=== PATIENT | male | born 1955 | race Caucasian/White ===

== ENCOUNTER 2020-03-19 11:30 | Emergency (ER) | payer BC, OTHER ==
[~2020-03-19] VITALS: Ht 172.7 cm; Wt 95.4 kg
[~2020-03-19 11:30] MED LIST: ALPR.5T; OXYC-12 PO
[2020-03-19 11:53] LABS: BASOPHILS % (AUTO) 0 % (0-10); EOSINOPHILS # (AUTO) 0.1 10^3/uL (0.0-0.3); EOSINOPHILS % (AUTO) 1 % (0-10); HEMATOCRIT 43 % (40-54); HEMOGLOBIN 14.9 G/DL (13.3-17.7); LYMPHOCYTES # (AUTO) 1.5 X 10^3 (1.0-4.0); LYMPHOCYTES % (AUTO) 18 % (12-44); MEAN CORPUSCULAR HEMOGLOBIN 30 PG (25-34); MEAN CORPUSCULAR HGB CONC 35 G/DL (32-36); MEAN CORPUSCULAR VOLUME 88 FL (80-99); MEAN PLATELET VOLUME 9.5 FL (7.4-10.4); MONOCYTES # (AUTO) 0.4 X 10^3 (0.0-1.0); MONOCYTES % (AUTO) 5 % (0-12); NEUTROPHILS # (AUTO) 6.3 X 10^3 (1.8-7.8); NEUTROPHILS % (AUTO) 76 % (42-75); PLATELET COUNT 204 10^3/uL (130-400); WHITE BLOOD COUNT 8.3 10^3/uL (4.3-11.0)
--- NOTE | 2020-03-19 11:58 | ED GI ---
General Chief Complaint: - Urinary Stated Complaint: LRQ PAIN Source of Information: Patient Exam Limitations: No Limitations History of Present Illness Date Seen by Provider: Mar 19, 2020 Time Seen by Provider: 11:40 Initial Comments The patient is a pleasant 64-year-old male who presents for evaluation of right lower quadrant abdominal pain which started this morning around 7 AM. He states that he has had a kidney stone the past that this feels the same. He reports a past surgical history including appendectomy, cholecystectomy, and kidney stone retrieval. He is alert and oriented 4, calm, and appears to be in no distress. He denies fevers or chills, rectal bleeding, diarrhea, nausea or vomiting, chest pain or shortness of breath, or testicular pain, hematuria, dysuria, dizziness or syncope. Timing/Duration: 4-6 Hours Severity/Quality: Moderate Location: RLQ Radiation: No Radiation Activities at Onset: None Associated Symptoms: Denies Symptoms Allergies and Home Medications Allergies Coded Allergies: No Known Allergies (Verified Allergy, Unknown, 04/11/06) Home Medications Oxycodone Hcl/Acetaminophen 1 Each Tablet, 2 EACH PO Q6H, (Reported) Patient Home Medication List Home Medication List Reviewed: Yes Review of Systems Review of Systems Constitutional: no symptoms reported EENTM: No Symptoms Reported Respiratory: No Symptoms Reported Cardiovascular: No Symptoms Reported Gastrointestinal: Abdominal Pain Genitourinary: No Symptoms Reported Musculoskeletal: no symptoms reported Skin: no symptoms reported Psychiatric/Neurological: No Symptoms Reported Endocrine: No Symptoms Reported Hematologic/Lymphatic: No Symptoms Reported All Other Systems Reviewed Negative Unless Noted: Yes Past Ttjxsce-Husgik-Yaypir Hx Past Med/Social Hx: Reviewed Nursing Past Med/Soc Hx Patient Social History Recent Foreign Travel: No Contact w/Someone Who Travel: No Past Medical History Reproductive Disorders: No Physical Exam Vital Signs Vital Signs - First Documented 03/19/20 11:37 Temp 36.0 Pulse 50 Resp 18 B/P (MAP) 157/88 (111) Pulse Ox 100 O2 Delivery Room Air Capillary Refill : Height/Weight/BMI Height: '" Weight: lbs. oz. 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, no motor/sensory deficits, alert, normal mood/affect, oriented x 3 Skin: normal color, warm/dry Progress/Results/Core Measures Results/Orders Lab Results Laboratory Tests Test 03/19/20 11:45 03/19/20 12:00 Range/Units White Blood Count 8.3 4.3-11.0 10^3/uL Red Blood Count 4.89 4.35-5.85 10^6/uL Hemoglobin 14.9 13.3-17.7 G/DL Hematocrit 43 40-54 % Mean Corpuscular Volume 88 80-99 FL Mean Corpuscular Hemoglobin 30 25-34 PG Mean Corpuscular Hemoglobin Concent 35 32-36 G/DL Red Cell Distribution Width 12.9 10.0-14.5 % Platelet Count 204 130-400 10^3/uL Mean Platelet Volume 9.5 7.4-10.4 FL Neutrophils (%) (Auto) 76 H 42-75 % Lymphocytes (%) (Auto) 18 12-44 % Monocytes (%) (Auto) 5 0-12 % Eosinophils (%) (Auto) 1 0-10 % Basophils (%) (Auto) 0 0-10 % Neutrophils # (Auto) 6.3 1.8-7.8 X 10^3 Lymphocytes # (Auto) 1.5 1.0-4.0 X 10^3 Monocytes # (Auto) 0.4 0.0-1.0 X 10^3 Eosinophils # (Auto) 0.1 0.0-0.3 10^3/uL Basophils # (Auto) 0.0 0.0-0.1 10^3/uL Sodium Level 139 135-145 MMOL/L Potassium Level 4.1 3.6-5.0 MMOL/L Chloride Level 102 98-107 MMOL/L Carbon Dioxide Level 23 21-32 MMOL/L Anion Gap 14 5-14 MMOL/L Blood Urea Nitrogen 22 H 7-18 MG/DL Creatinine 1.00 0.60-1.30 MG/DL Estimat Glomerular Filtration Rate > 60 BUN/Creatinine Ratio 22 Glucose Level 130 H 70-105 MG/DL Calcium Level 10.1 8.5-10.1 MG/DL Corrected Calcium 8.5-10.1 MG/DL Total Bilirubin 0.9 0.1-1.0 MG/DL Aspartate Amino Transf (AST/SGOT) 39 H 5-34 U/L Alanine Aminotransferase (ALT/SGPT) 44 0-55 U/L Alkaline Phosphatase 94 40-136 U/L Total Protein 7.1 6.4-8.2 GM/DL Albumin 4.6 H 3.2-4.5 GM/DL Amylase Level 96 25-125 U/L Urine Color YELLOW Urine Clarity CLEAR Urine pH 5.5 5-9 Urine Specific [place] >1.030 1.016-1.022 Urine Protein NEGATIVE NEGATIVE Urine Glucose (UA) NEGATIVE NEGATIVE Urine Ketones TRACE H NEGATIVE Urine Nitrite NEGATIVE NEGATIVE Urine Bilirubin NEGATIVE NEGATIVE Urine Urobilinogen 0.2 < = 1.0 MG/DL Urine Leukocyte Esterase NEGATIVE NEGATIVE Urine RBC (Auto) NEGATIVE NEGATIVE Urine RBC RARE /HPF Urine WBC NONE /HPF Urine Squamous Epithelial Cells RARE /HPF Urine Crystals NONE /LPF Urine Bacteria NONE /HPF Urine Casts NONE /LPF Urine Mucus NEGATIVE /LPF Urine Culture Indicated NO My Orders Orders - MAHNAZ GONZALEZ DO Amylase (03/19/20 11:37) Cbc With Automated Diff (03/19/20 11:37) Comprehensive Metabolic Panel (03/19/20 11:37) Ua Culture If Indicated (03/19/20 11:37) Ed Iv/Invasive Line Start (03/19/20 11:37) Ct Abdomen/Pelvis Wo (03/19/20 11:50) Ns Iv 1000 Ml (Sodium Chloride 0.9%) (03/19/20 12:00) Ketorolac Injection (Toradol Injection) (03/19/20 12:00) Medications Given in ED Current Medications Medications Dose Ordered Sig/Richie Route Start Time Stop Time Status Last Admin Dose Admin Ketorolac Tromethamine 30 mg ONCE ONCE IVP 03/19/20 12:00 03/19/20 12:01 DC 03/19/20 12:00 30 MG Vital Signs/I&O 03/19/20 03/19/20 11:37 12:00 Temp 36.0 36.0 Pulse 50 Resp 18 B/P (MAP) 157/88 (111) Pulse Ox 100 O2 Delivery Room Air Progress Progress Note : Progress Note @1249 - patient updated on lab and imaging results which show any millimeter nonobstructing kidney stone at the right UVJ. Case d/w Dr. Arreola from urology. He states to obtain a KUB and to have the patient follow-up with him in his office tomorrow at 12:45 PM. He also would like the patient given a prescription for antibiotics. The patient states he is feeling much better at this time. Workup today fails reveal any emergent pathology. The patient's kidney function is excellent. Advise pt to strain urine. Advised return to the emergency department immediately for new or worsening symptoms. The patient expresses verbal understanding and agreement with the plan and is stable for discharge. Diagnostic Imaging Diagonstic Imaging: CT Comments [facility] [place], [place] NAME: JUAN CARLOS [facility] REC#: [id number] PT STATUS: REG ER : 1955 PHYSICIAN: MAHNAZ GONZALEZ DO ADMIT DATE: 03/19/20/ER FS Draft Date of Exam:03/19/20 CT ABDOMEN/PELVIS WO PROCEDURE: CT abdomen and pelvis without contrast. TECHNIQUE: Multiple contiguous axial images were obtained through the abdomen and pelvis without the use of intravenous contrast. Auto Exposure Controls were utilized during the CT exam to meet ALARA standards for radiation dose reduction. INDICATION: Right flank pain. Patient does have history of kidney stones. No prior studies are available for comparison. Lung bases are clear. The liver is unremarkable. Gallbladder is surgically absent. No biliary ductal dilatation is seen. The pancreas and spleen are unremarkable. No adrenal mass is detected. There are multiple bilateral nonobstructing renal calculi. These range in size from 1 to 3 mm. There is dilatation of the right renal collecting system and right renal pelvis. Right ureter is also dilated traced to the level of the bladder. There is a calculus within the right aspect of the bladder base measuring 6 mm. This is either located at the UVJ or just entering the urinary bladder. The left ureter is unremarkable. Aorta is non-aneurysmal. The small and large bowel loops are normal caliber. No free fluid or fluid collection is detected. Prostate is normal in size. IMPRESSION: 1. Bilateral nonobstructing nephrolithiasis. In addition, there is an 8 mm calculus located at the UVJ or just entering the urinary bladder. There is moderate right-sided hydroureteronephrosis. Dictated on workstation # [id number] Dict: 03/19/20 1219 Trans: 03/19/20 1223 CV [id number] Interpreted by: LISA GARCIA MD Electronically signed by: Departure Impression Primary Impression: Calculus of ureterovesical junction (UVJ) Disposition: 01 HOME, SELF-CARE Condition: Stable Departure-Patient Inst. Referrals: CHARITY ARREOLA MD Follow up with urology (Dr. Arreola) in 1-2 days. Patient Instructions: Kidney Stones in Adults, Kidney Stone Diet Add. Discharge Instructions: Follow-up with Dr. Arreola from urology tomorrow at 12:45p, he will be expecting you. Take the prescribed medicine as directed, as needed. Return to the emergency Department immediately for difficulty urinating, fever, new or wor sening symptoms. Scripts Cephalexin (Keflex) 500 Mg Capsule 500 MG PO BID for 5 Days, #10 CAP Prov: MAHNAZ GONZALEZ DO 03/19/20 Hydrocodone/Acetaminophen (Hydrocodone-Acetamin 5-325 mg) 1 Each Tablet 1 EACH PO Q4H for 5 Days, #15 TAB Prov: MAHNAZ GONZALEZ DO 03/19/20 Ondansetron (Ondansetron Odt) 4 Mg Tab.rapdis 4 MG PO Q4H PRN for NAUSEA/VOMITING for 5 Days, #15 TAB 0 Refills Prov: MAHNAZ GONZALEZ DO 03/19/20 MAHNAZ GONZALEZ DO Mar 19, 2020 11:58
[2020-03-19] MEDS ORDERED: NS IV 1000 ML 1,000 ML IV SCH (12:00)
[2020-03-19] MEDS ORDERED: KETOROLAC 30 MG/ML VIAL IVP ONE (12:00)
[2020-03-19 12:13] LABS: CLARITY,URINE CLEAR; COLOR,URINE YELLOW
[2020-03-19 12:14] LABS: BILIRUBIN,URINE NEGATIVE (NEGATIVE); GLUCOSE, URINE (UA) NEGATIVE (NEGATIVE); KETONES,URINE TRACE (NEGATIVE); LEUKOCYTE ESTERASE ,URINE NEGATIVE (NEGATIVE); NITRITE,URINE NEGATIVE (NEGATIVE); PH,URINE 5.5 (5-9); PROTEIN,URINE NEGATIVE (NEGATIVE); RBC,URINE RARE /HPF; SQUAMOUS EPITHELIAL CELL,UR RARE /HPF
[2020-03-19 12:15] LABS: BUN/CREATININE RATIO 22; CARBON DIOXIDE 23 MMOL/L (21-32); CHLORIDE 102 MMOL/L (98-107); GFR ESTIMATED > 60; POTASSIUM 4.1 MMOL/L (3.6-5.0); SODIUM 139 MMOL/L (135-145)
[2020-03-19 12:16] LABS: ALANINE AMINOTRANSFERASE 44 U/L (0-55); ALBUMIN 4.6 GM/DL (3.2-4.5); ALKALINE PHOSPHATASE 94 U/L (40-136); AMYLASE 96 U/L (25-125); BILIRUBIN,TOTAL 0.9 MG/DL (0.1-1.0); CALCIUM 10.1 MG/DL (8.5-10.1); GLUCOSE 130 MG/DL (70-105); TOTAL PROTEIN 7.1 GM/DL (6.4-8.2)
--- NOTE | 2020-03-19 12:23 | Diagnostic Imaging Report ---
PROCEDURE: CT abdomen and pelvis without contrast. TECHNIQUE: Multiple contiguous axial images were obtained through the abdomen and pelvis without the use of intravenous contrast. Auto Exposure Controls were utilized during the CT exam to meet ALARA standards for radiation dose reduction. INDICATION: Right flank pain. Patient does have history of kidney stones. No prior studies are available for comparison. Lung bases are clear. The liver is unremarkable. Gallbladder is surgically absent. No biliary ductal dilatation is seen. The pancreas and spleen are unremarkable. No adrenal mass is detected. There are multiple bilateral nonobstructing renal calculi. These range in size from 1 to 3 mm. There is dilatation of the right renal collecting system and right renal pelvis. Right ureter is also dilated traced to the level of the bladder. There is a calculus within the right aspect of the bladder base measuring 6 mm. This is either located at the UVJ or just entering the urinary bladder. The left ureter is unremarkable. Aorta is non-aneurysmal. The small and large bowel loops are normal caliber. No free fluid or fluid collection is detected. Prostate is normal in size. IMPRESSION: 1. Bilateral nonobstructing nephrolithiasis. In addition, there is an 8 mm calculus located at the UVJ or just entering the urinary bladder. There is moderate right-sided hydroureteronephrosis. Dictated by: Dictated on workstation # [id number]
[2020-03-19] MEDS ORDERED: ATOR80TA76 (12:40)
[2020-03-19] MEDS ORDERED: LISI10TA2 (12:40)
[2020-03-19] MEDS ORDERED: TAMSULOSIN (12:40)
[2020-03-19] MEDS ORDERED: ALPR0.5T7 (12:40)
[2020-03-19] MEDS ORDERED: CARV6.252 (12:40)
[2020-03-19] MEDS ORDERED: CEPH-507 PO (13:04)
[2020-03-19] MEDS ORDERED: ACHD5005 PO (13:04)
[2020-03-19] MEDS ORDERED: ONDA4TAB11 PO (13:04)
[2020-03-19 13:25] VITALS: BP 133/69
--- NOTE | 2020-03-19 15:02 | Diagnostic Imaging Report ---
INDICATION: Right flank pain. UVJ calculus. COMPARISON: CT from earlier same day. FINDINGS: Multiple radiographic views of the abdomen were obtained. Several punctate extraosseous calcifications are noted projecting over the renal fossa bilaterally and may correspond to renal calculi seen on CT from earlier same day. Extraosseous calcification is also noted projecting over the pelvis to the right lateral midline and is felt to correspond to the UVJ calculus seen on prior CT. Phleboliths are also noted on the left. Small bowel loops are nondistended. There is no large collection of free intraperitoneal air. No unexpected radiopaque foreign bodies are seen. Osseous structures show age-related degenerative changes. IMPRESSION: 1. Right pelvic calculus, which again is felt to correspond to distal UVJ stone seen on recent CT. 2. Redemonstration bilateral nephrolithiasis. Dictated by: Dictated on workstation # [id number]
== END 2020-03-19 13:25 | disposition home or self-care (01) ==
LOC: EDUNIT# 11:30 → ER FS 11:32
DX: N13.0 Hydronephrosis with ureteropelvic junction obstruction (principal)
CPT/HCPCS: 36415; 74018; 74176; 80053; 81000; 82150; 85025

== ENCOUNTER → 2020-03-20 | Outpatient (CLI) | payer BC ==
[~2020-03-20] MED LIST changes: +ACHD5005 PO; +ALPR0.5T7; +ATOR80TA76; +CARV6.252; +CEPH-507 PO; +LISI10TA2; +ONDA4TAB11 PO; +TAMSULOSIN
--- NOTE | 2020-03-20 16:31 | Diagnostic Imaging Report ---
INDICATION: Nephrolithiasis KUB 3:27 PM Bowel gas pattern is normal. The gallbladder appears to be surgically absent. There are ramu in the right lower quadrant that could be from appendectomy. There are stippled calcifications projecting over both kidneys. There is a 6 mm calculus in the urinary bladder. IMPRESSION: Bilateral nephrolithiasis. Urinary bladder calculus. Dictated by: Dictated on workstation # [id number]
== END ==
LOC: RAD FS 15:12
PROVIDERS: ATTEND Urology
DX: N20.0 Calculus of kidney (principal)
CPT/HCPCS: 74018

== ENCOUNTER 2020-06-15 07:58 | Emergency (ER) | payer BC ==
[~2020-06-15] VITALS: Ht 175 cm; Wt 95.0 kg
[2020-06-15] MEDS ORDERED: morphine INJ 10 MG/ML 1ML (SYR OR VIAL) IVP STA (08:08)
[2020-06-15] MEDS ORDERED: KETOROLAC 30 MG/ML VIAL IVP ONE (08:15)
[2020-06-15] MEDS ORDERED: TAMSULOSIN 0.4 MG (FLOMAX) CAP PO SCH (08:15)
[2020-06-15] MEDS ORDERED: NS IV 1000 ML 1,000 ML IV SCH (08:15)
[2020-06-15] MEDS ORDERED: ONDANSETRON 4 MG/2 ML (SDV) Z0FRAN IVP ONE (08:15)
[2020-06-15 08:18] LABS: BASOPHILS % (AUTO) 0 % (0-10); EOSINOPHILS % (AUTO) 1 % (0-10); HEMATOCRIT 42 % (40-54); HEMOGLOBIN 14.5 G/DL (13.3-17.7); LYMPHOCYTES % (AUTO) 20 % (12-44); MEAN CORPUSCULAR HEMOGLOBIN 31 PG (25-34); MEAN CORPUSCULAR HGB CONC 35 G/DL (32-36); MEAN CORPUSCULAR VOLUME 88 FL (80-99); MEAN PLATELET VOLUME 9.4 FL (7.4-10.4); MONOCYTES % (AUTO) 5 % (0-12); NEUTROPHILS % (AUTO) 73 % (42-75); PLATELET COUNT 212 10^3/uL (130-400); WHITE BLOOD COUNT 7.9 10^3/uL (4.3-11.0)
[2020-06-15 08:19] LABS: EOSINOPHILS # (AUTO) 0.1 10^3/uL (0.0-0.3); LYMPHOCYTES # (AUTO) 1.6 X 10^3 (1.0-4.0); MONOCYTES # (AUTO) 0.4 X 10^3 (0.0-1.0); NEUTROPHILS # (AUTO) 5.8 X 10^3 (1.8-7.8)
[2020-06-15 08:27] LABS: INR 0.9 (0.8-1.4); PROTHROMBIN TIME PATIENT 12.5 SEC (12.2-14.7)
[2020-06-15 08:33] LABS: BUN/CREATININE RATIO 22; CARBON DIOXIDE 20 MMOL/L (21-32); CHLORIDE 105 MMOL/L (98-107); CREATININE SERUM 0.89 MG/DL (0.60-1.30); GFR ESTIMATED > 60; GLUCOSE 174 MG/DL (70-105); SODIUM 136 MMOL/L (135-145)
[2020-06-15 08:34] LABS: ALANINE AMINOTRANSFERASE 32 U/L (0-55); ALBUMIN 4.5 GM/DL (3.2-4.5); ALKALINE PHOSPHATASE 107 U/L (40-136); BILIRUBIN,TOTAL 0.7 MG/DL (0.1-1.0); CALCIUM 9.7 MG/DL (8.5-10.1); TOTAL PROTEIN 6.9 GM/DL (6.4-8.2)
--- NOTE | 2020-06-15 08:52 | ED General ---
General Chief Complaint: - Urinary Stated Complaint: ABD PAIN; THINKS HE HAS A KIDNEY STONE Nursing Triage Note: PT PRESENTS WITH RIGHT LOWER QUAD PAIN THAT STARTED THIS AM. HE DENIES TAKING MEDICATIONS FOR PAIN BUT DRANK SOME WATER AND CRANBERRY JUICE. HE REPORTS HE VOMITED THE JUICE UP SHORTLY AFTER. PT REPORTS HE HAS A LONG HX OF KIDNEY STONES AND THIS FEELS LIKE A STONE. Nursing Sepsis Screen: No Definite Risk History of Present Illness Date Seen by Provider: Jun 15, 2020 Time Seen by Provider: 08:49 Initial Comments Patient presenting to the emergency department for evaluation of right lower quadrant pain that has been going on since this morning and he says it feels exactly the same as a prior kidney stone and made him feel nauseated me throughout his cranberry juice. He says he has had 5 kidney stones before in the past and he has passed them all on his own except for 1. His urologist is Dr. Smyth. Patient denies fevers chills diarrhea constipation dysuria or hematuria. He says that he is very anxious but is nontoxic with normal vital signs. Allergies and Home Medications Allergies Coded Allergies: No Known Allergies (Verified Allergy, Unknown, 04/11/06) Home Medications Cephalexin 500 Mg Capsule, 500 MG PO BID Prescribed by: MAHNAZ GONZALEZ on 03/19/20 1304 Hydrocodone/Acetaminophen 1 Each Tablet, 1 EACH PO Q4H Prescribed by: MAHNAZ GONZALEZ on 03/19/20 1304 Ondansetron 4 Mg Tab.rapdis, 4 MG PO Q4H PRN for NAUSEA/VOMITING Prescribed by: MAHNAZ GONZALEZ on 03/19/20 1304 Oxycodone Hcl/Acetaminophen 1 Each Tablet, 2 EACH PO Q6H, (Reported) Patient Home Medication List Home Medication List Reviewed: Yes Review of Systems Review of Systems Constitutional: no symptoms reported Respiratory: no symptoms reported Cardiovascular: no symptoms reported Gastrointestinal: abdominal pain (RLQ), nausea, vomiting Genitourinary: no symptoms reported Musculoskeletal: no symptoms reported Skin: no symptoms reported Psychiatric/Neurological: No Symptoms Reported All Other Systems Reviewed Negative Unless Noted: Yes Past Xnzzkht-Plwugm-Tvbiwc Hx Patient Social History Alcohol Use: Denies Use Recreational Drug Use: No Smoking Status: Never a Smoker 2nd Hand Smoke Exposure: No Recent Foreign Travel: No Contact w/Someone Who Travel: No Recent Infectious Disease Expo: No Recent Hopitalizations: No Physical Abuse: No Sexual Abuse: No Mistreated: No Fear: No Seasonal Allergies Seasonal Allergies: No Past Medical History Surgeries: Yes (Kidney stone retrieval ) Appendectomy, Gallbladder, Orthopedic Respiratory: No Cardiac: Yes Hypertension Neurological: No Reproductive Disorders: No Sexually Transmitted Disease: No Genitourinary: Yes Kidney Stones Gastrointestinal: No Musculoskeletal: Yes (2 rotator cuff sx,left knee arthoscopy,back sx) Arthritis, Gout Endocrine: No HEENT: No Cancer: No Psychosocial: No Blood Disorders: No Physical Exam Vital Signs Vital Signs - First Documented 06/15/20 08:12 Temp 36.2 Pulse 65 Resp 18 B/P (MAP) 151/89 (109) Pulse Ox 98 O2 Delivery Room Air Capillary Refill : Less Than 3 Seconds Height, Weight, BMI Height: '" Weight: lbs. oz. 95.312678xg; 31.00 BMI Method: General Appearance: No Apparent Distress, WD/WN HEENT: PERRL/EOMI Neck: Supple Respiratory: Normal Breath Sounds, No Respiratory Distress Cardiovascular: Regular Rate, Rhythm Gastrointestinal: Non Tender, Soft Back: No CVA Tenderness Neurologic/Psychiatric: Alert, Oriented x3 Skin: Warm/Dry Progress/Results/Core Measures Suspected Sepsis Recent Fever Within 48 Hours: No Infection Criteria Present: None New/Unexplained Altered Menta: No Sepsis Screen: No Definite Risk SIRS Temperature: Pulse: 65 Respiratory Rate: 18 Laboratory Tests 06/15/20 08:05: White Blood Count 7.9 Blood Pressure 151 /89 Mean: 109 Laboratory Tests 06/15/20 08:05: Creatinine 0.89, INR Comment 0.9, Platelet Count 212, Total Bilirubin 0.7 Results/Orders Lab Results Laboratory Tests Test 06/15/20 08:05 06/15/20 09:26 Range/Units White Blood Count 7.9 4.3-11.0 10^3/uL Red Blood Count 4.72 4.35-5.85 10^6/uL Hemoglobin 14.5 13.3-17.7 G/DL Hematocrit 42 40-54 % Mean Corpuscular Volume 88 80-99 FL Mean Corpuscular Hemoglobin 31 25-34 PG Mean Corpuscular Hemoglobin Concent 35 32-36 G/DL Red Cell Distribution Width 12.8 10.0-14.5 % Platelet Count 212 130-400 10^3/uL Mean Platelet Volume 9.4 7.4-10.4 FL Immature Granulocyte % (Auto) 0 % Neutrophils (%) (Auto) 73 42-75 % Lymphocytes (%) (Auto) 20 12-44 % Monocytes (%) (Auto) 5 0-12 % Eosinophils (%) (Auto) 1 0-10 % Basophils (%) (Auto) 0 0-10 % Neutrophils # (Auto) 5.8 1.8-7.8 X 10^3 Lymphocytes # (Auto) 1.6 1.0-4.0 X 10^3 Monocytes # (Auto) 0.4 0.0-1.0 X 10^3 Eosinophils # (Auto) 0.1 0.0-0.3 10^3/uL Basophils # (Auto) 0.0 0.0-0.1 10^3/uL Immature Granulocyte # (Auto) 0.0 0.0-0.1 10^3/uL Prothrombin Time 12.5 12.2-14.7 SEC INR Comment 0.9 0.8-1.4 Activated Partial Thromboplast Time 26 24-35 SEC Sodium Level 136 135-145 MMOL/L Potassium Level 4.0 3.6-5.0 MMOL/L Chloride Level 105 98-107 MMOL/L Carbon Dioxide Level 20 L 21-32 MMOL/L Anion Gap 11 5-14 MMOL/L Blood Urea Nitrogen 20 H 7-18 MG/DL Creatinine 0.89 0.60-1.30 MG/DL Estimat Glomerular Filtration Rate > 60 BUN/Creatinine Ratio 22 Glucose Level 174 H 70-105 MG/DL Calcium Level 9.7 8.5-10.1 MG/DL Corrected Calcium 9.3 8.5-10.1 MG/DL Total Bilirubin 0.7 0.1-1.0 MG/DL Aspartate Amino Transf (AST/SGOT) 31 5-34 U/L Alanine Aminotransferase (ALT/SGPT) 32 0-55 U/L Alkaline Phosphatase 107 40-136 U/L Total Protein 6.9 6.4-8.2 GM/DL Albumin 4.5 3.2-4.5 GM/DL Urine Color ORANGE Urine Clarity CLEAR Urine pH 5.0 5-9 Urine Specific [place] 1.020 1.016-1.022 Urine Protein 1+ H NEGATIVE Urine Glucose (UA) TRACE H NEGATIVE Urine Ketones NEGATIVE NEGATIVE Urine Nitrite POSITIVE H NEGATIVE Urine Bilirubin NEGATIVE NEGATIVE Urine Urobilinogen 4.0 < = 1.0 MG/DL Urine Leukocyte Esterase TRACE H NEGATIVE Urine RBC (Auto) NEGATIVE NEGATIVE Urine RBC 0-2 /HPF Urine WBC 0-2 /HPF Urine Squamous Epithelial Cells 0-2 /HPF Urine Crystals NONE /LPF Urine Bacteria NONE /HPF Urine Casts NONE /LPF Urine Mucus TRACE /LPF Urine Culture Indicated YES My Orders Orders - RAMANA SU DO Cbc With Automated Diff (06/15/20 08:08) Comprehensive Metabolic Panel (06/15/20 08:08) Partial Thromboplastin Time (06/15/20 08:08) Protime With Inr (06/15/20 08:08) Ua Culture If Indicated (06/15/20 08:08) Iv/Invasive Line Insertion .IV start (06/15/20 08:08) Ondansetron Injection (Zofran Injectio (06/15/20 08:15) Ketorolac Injection (Toradol Injection) (06/15/20 08:15) Morphine Injection (Morphine Injection (06/15/20 08:08) Ns Iv 1000 Ml (Sodium Chloride 0.9%) (06/15/20 08:15) Tamsulosin Capsule (Flomax Capsule) (06/15/20 08:15) Ct Abdomen/Pelvis Wo (06/15/20 08:13) Urine Culture (06/15/20 09:26) Oxycodone/Apap 5/325mg Tablet (Percocet (06/15/20 09:45) Abdomen (Kub) 1 View (06/15/20 09:40) Medications Given in ED Current Medications Medications Dose Ordered Sig/Richie Route Start Time Stop Time Status Last Admin Dose Admin Ketorolac Tromethamine 15 mg ONCE ONCE IVP 06/15/20 08:15 06/15/20 08:16 DC 06/15/20 08:21 15 MG Ondansetron HCl 4 mg ONCE ONCE IVP 06/15/20 08:15 06/15/20 08:16 DC 06/15/20 08:20 4 MG Vital Signs/I&O 06/15/20 06/15/20 08:12 09:31 Temp 36.2 36.2 Pulse 65 72 Resp 18 16 B/P (MAP) 151/89 (109) 122/78 Pulse Ox 98 100 O2 Delivery Room Air Room Air Capillary Refill : Less Than 3 Seconds Blood Pressure Mean: 109 Progress Note : Progress Note Based off history and presentation I suspect this likely is a ureter calculus I will check labs urinalysis CT treat symptoms and reassess. It appears the patient may have the same exact distal right ureter calculus that was seen on CT on March 19. He says he has been having off and on back pain. Certainly a new stone is possible as well but either way the treatment well be the same. I spoke to Dr. Smyth about patient's presentation and I'll plan to have him follow in the clinic tomorrow at 1 PM and then make definitive planning on how to extract a stone. Patient's pain is significantly improved and controlled so he'll be discharged in stable condition with supportive medications told to keep his follow-up tomorrow and come back to the ED sooner with worsening pain fevers vomiting or other general concerns. Patient aware and agreeable with plan and verbalized understanding of the above instructions. Although I do not see a definitive infection based off his results will go ahead and start him on Keflex given the positive nitrates. Departure Impression Primary Impression: Right ureteral calculus Additional Impressions: Abdominal pain Nausea & vomiting Disposition: 01 HOME, SELF-CARE Condition: Stable Departure-Patient Inst. Referrals: SELFNICHO MD (PCP/Family) Primary Care Physician Patient Instructions: Kidney Stones (DC) Add. Discharge Instructions: Follow with Dr. Smyth tomorrow at 1pm. Come back with any concerns. Thank you! All discharge instructions reviewed with patient and/or family. Voiced unders tanding. Scripts Ibuprofen (Ibuprofen) 600 Mg Tablet 600 MG PO Q6H PRN for PAIN-MILD, #20 TAB Prov: RAMANA SU DO 06/15/20 Ondansetron HCl (Zofran) 4 Mg Tab 4 MG PO Q6H PRN for NAUSEA/VOMITING-1ST LINE, #14 TAB Prov: RAMANA SU DO 20 Oxycodone HCl/Acetaminophen (Percocet 5-325 mg Tablet) 1 Each Tablet 1 TAB PO Q4H for PAIN-MODERATE MDD 6 TABS for 7 Days, #14 TAB Prov: RAMANA SU DO 06/15/20 Cephalexin (Keflex) 500 Mg Capsule 500 MG PO TID, #21 CAP Prov: RAMANA SU DO 06/15/20 RAMANA SU DO Jun 15, 2020 08:52
--- NOTE | 2020-06-15 09:11 | Diagnostic Imaging Report ---
CT ABDOMEN/PELVIS WO TECHNIQUE: Unenhanced CT imaging of the abdomen and pelvis was performed. 2-D reformats are created and submitted for interpretation. Automatic exposure controls were utilized to optimize patient dose. INDICATION: Right lower quadrant pain. COMPARISON: CT abdomen and pelvis of 03/19/2020 FINDINGS: Evaluation of the abdominal viscera is mildly limited without contrast. Lower chest: Scattered calcified pulmonary granulomas are present. No pericardial pleural effusion. Peritoneum: No free intraperitoneal air or fluid. Liver and biliary system: Numerous calcified punctate splenic granulomas are unchanged. No concerning focal hepatic lesion. Cholecystectomy. No pathologic biliary duct dilatation. Spleen and Pancreas: Stable scattered calcified splenic granulomas. No acute abnormality of the spleen. Unenhanced pancreas is grossly normal. Adrenals: Normal. tract: Unchanged moderate right hydronephrosis and hydroureter with a 8 mm stone at the right UVJ partially extending into the urinary bladder. Numerous additional nonobstructing 1-2 mm bilateral renal stones are unchanged. No left ureteral stones or obstructive uropathy. Prostate is not enlarged. GI tract: Stomach is partially filled with fluid and air. No bowel obstruction. No pericolonic inflammatory changes. Appendectomy. Sigmoid colon diverticulosis without diverticulitis. Vasculature and Lymph nodes: Normal caliber aorta. No abdominal or pelvic lymphadenopathy. Musculoskeletal: No concerning osseous lesion. IMPRESSION: 1. Similar to examination from 03/19/2020, there is a 8 mm obstructing stone at the right UVJ resulting in moderate right hydronephrosis and hydroureter. 2. Additional bilateral nonobstructing 1 to 2 mm renal stones are unchanged. Dictated by: Dictated on workstation # [id number]
[2020-06-15 09:31] VITALS: BP 122/78
[2020-06-15 09:38] LABS: BILIRUBIN,URINE NEGATIVE (NEGATIVE); CLARITY,URINE CLEAR; COLOR,URINE ORANGE; GLUCOSE, URINE (UA) TRACE (NEGATIVE); KETONES,URINE NEGATIVE (NEGATIVE); LEUKOCYTE ESTERASE ,URINE TRACE (NEGATIVE); NITRITE,URINE POSITIVE (NEGATIVE); PROTEIN,URINE 1+ (NEGATIVE); RBC,URINE 0-2 /HPF; SQUAMOUS EPITHELIAL CELL,UR 0-2 /HPF; WBC,URINE 0-2 /HPF
[2020-06-15] MEDS ORDERED: oxyCODONE/APAP 5/325MG (PERCOCET 5) TABLET PO ONE (09:45)
[2020-06-15] MEDS ORDERED: CEPH-507 PO (09:46)
[2020-06-15] MEDS ORDERED: OXYC1TAB87 PO (09:46)
[2020-06-15] MEDS ORDERED: IBUP-1773 PO (09:46)
[2020-06-15] MEDS ORDERED: ONDN4T PO (09:46)
--- NOTE | 2020-06-15 10:12 | Diagnostic Imaging Report ---
EXAMINATION: Abdominal radiographs, single supine view, 2 images. DATE: June 15, 2020. CLINICAL INDICATION: 64-year-old male, right-sided renal stone. COMPARISON: CT abdomen and pelvis June 15, 2020. COMMENTS: There is a calcification overlying the sacrum on the right measuring 7 mm in size which likely correlates with the stone near the level of the ureterovesical junction on the right seen on same day CT abdomen pelvis exam. The known right and left renal stones are not well seen radiographically. The right upper quadrant surgical clips. There are gas-filled segments of small bowel which are not grossly distended. The amount of small bowel gas is abnormal. IMPRESSION: 1. 7 mm stone overlying the right sacrum likely correlating with the stone seen near the level of the distal ureterovesical junction on same day CT exam. 2. Known renal stones not well seen radiographically. 3. Abnormal but nonspecific bowel gas pattern. Dictated by: Dictated on workstation # [id number]
[2020-06-16] MEDS ORDERED: ATOR80TA76 PO (16:05)
[2020-06-16] MEDS ORDERED: ASPI-999 PO (16:05)
[2020-06-16] MEDS ORDERED: TMSL.4C PO (16:05)
[2020-06-16] MEDS ORDERED: ALPR0.5T7 PO (16:05)
[2020-06-16] MEDS ORDERED: CARV6.252 PO (16:05)
[2020-06-16] MEDS ORDERED: LISI10TA2 PO (16:05)
[2020-06-17] MEDS ORDERED: PHEN-640 PO (10:44)
[2020-06-17] MEDS ORDERED: SULF1TAB35 PO (10:44)
== END 2020-06-15 09:52 | disposition home or self-care (01) ==
LOC: EDUNIT# 07:58 → ER FS 07:59
DX: N13.2 Hydronephrosis with renal and ureteral calculous obstruction (principal)
CPT/HCPCS: 36415; 74018; 74176; 80053; 81000; 85025; 85610; 85730; 87088

== ENCOUNTER 2020-06-16 14:53 | Outpatient (RCR) | payer BC ==
[~2020-06-16] VITALS: Ht 175 cm; Wt 89.5 kg
[~2020-06-16 14:53] MED LIST changes: +IBUP-1773 PO; +ONDN4T PO; +OXYC1TAB87 PO
[2020-06-16] MEDS ORDERED: LISI10TA2 PO (16:05)
[2020-06-16] MEDS ORDERED: TMSL.4C PO (16:05)
[2020-06-16] MEDS ORDERED: CARV6.252 PO (16:05)
[2020-06-16] MEDS ORDERED: ATOR80TA76 PO (16:05)
[2020-06-16] MEDS ORDERED: ALPR0.5T7 PO (16:05)
[2020-06-16] MEDS ORDERED: ASPI-999 PO (16:05)
[2020-06-17] MEDS ORDERED: PHEN-640 PO (10:44)
[2020-06-17] MEDS ORDERED: SULF1TAB35 PO (10:44)
== END 2020-06-16 16:29 | disposition home or self-care (01) ==
LOC: PREOP 14:53
PROVIDERS: ATTEND Urology
DX: Z01.818 Encounter for other preprocedural examination (principal)

== ENCOUNTER → 2020-06-17 | Day surgery (SDC) | payer BC ==
[2020-06-17] VITALS (8 sets, daily range): BP systolic 117–132; BP diastolic 71–86
[~2020-06-17] VITALS: Ht 175 cm; Wt 89.5 kg
[~2020-06-17] MED LIST changes: +ALPR0.5T7 PO; +ASPI-999 PO; +ATOR80TA76 PO; +CARV6.252 PO; +LACTATED RINGERS 1,000 ML IV PRN; +LIDOCAINE PF 2% 5 ML (XYLOCAINE) VIAL ONE; +LISI10TA2 PO; +MEPERIDINE (DEMEROL) INJ 50 MG/ML IVP ONE; +MIDAZOLAM 2 MG/2 ML (VERSED) VIAL ONE; +ONDANSETRON 4 MG/2 ML (SDV) Z0FRAN IVP PRN; +ONDANSETRON 4 MG/2 ML (SDV) Z0FRAN ONE; +PHEN-640 PO; +ROCURONIUM 10 MG/ML 5 ML SYRINGE IV ONE; +SEVOFLURANE (ULTANE) 15 ML INHAL SOLN ONE; +SULF1TAB35 PO; +TMSL.4C PO; +WATER (STERILE) FOR INJECTION 10 ML ONE; +cefTRIAXone 1,000 MG IV (ROCEPHIN) VIAL ONE; +cefTRIAXone FOR IV USE 1,000 MG in WATER (STERILE) FOR INJECTION 10 ML IV ONE; +fentaNYL INJECTION 100 MCG/2 ML AMP IVP ONE; +fentaNYL INJECTION 100 MCG/2 ML AMP ONE; +morphine INJ 10 MG/ML 1ML (SYR OR VIAL) IVP ONE; +proPOfol 200 MG/20 ML (DIPRIVAN) VIAL IV ONE
--- NOTE | 2020-06-17 08:39 | Diagnostic Imaging Report ---
Indication: Preop for right kidney stone. Comparison with previous CT scan of 06/15/2020. FINDINGS: There continues to be a calculi overlying the upper pole right kidney largest measuring approximately 5 mm. There are also calculi overlying the left kidney measuring 3 mm. The stone noted at the trigone of the bladder on the right on previous CT scan is not definitely identified on today's exam. IMPRESSION: 1. Bilateral nephrolithiasis. 2. Distal ureteral stone on the right noted on CT scan not definitely visualized on today's exam. Dictated by: Dictated on workstation # [id number]
--- NOTE | 2020-06-17 08:44 | Progress Note-Pre Operative ---
Pre-Operative Progress Note H&P Reviewed The H&P was reviewed, patient examined and no changes noted. Date Seen by Provider: Jun 17, 2020 Time Seen by Provider: 08:44 Date H&P Reviewed: Jun 17, 2020 Time H&P Reviewed: 08:44 Pre-Operative Diagnosis: RT DISTAL URETERAL STONE CHARITY ARREOLA MD Jun 17, 2020 08:44
--- NOTE | 2020-06-17 08:45 | Progress Note-Post Operative ---
Post-Operative Progess Note Surgeon (s)/Dry Color Mixer (s) Surgeon CHARITY ARREOLA MD Dry Color Mixer: NONE Pre-Operative Diagnosis RT DISTAL URETERAL STONE Post-Operative Diagnosis SAME Procedure & Operative Findings Date of Procedure 06/17/20 Procedure Performed/Findings CYSTOSCOPY AND EXTRACTION OF RT URETERAL STONE Anesthesia Type GENERAL Estimated Blood Loss Estimated blood loss (mL): NONE Specimens/Packing Specimens Removed STONE FOR ANALYSIS Packing: NONE CHARITY ARREOLA MD Jun 17, 2020 08:45
--- NOTE | 2020-06-17 08:46 | Discharge Inst-Urology ---
Discharge Inst-Urology Reconcile Patient Problems Problems Reviewed?: Yes Final Diagnosis RT DISTAL URETERAL STONE Patient Instructions/Follow Up Plan/Assessment/Instructions Please make appointment to been seen in office in 4 weeks. Stone for analysis post seen by patient, has it In 48 hours, if no bleeding, may resume ASA Increase oral fluids for 48 hours and then as needed. Diet and Activity as tolerated. If questions or concerns contact your physician Or seek help at emergency department. CHARITY ARREOLA MD Jun 17, 2020 08:46
--- NOTE | 2020-06-17 10:47 | Anesthesia-General Post-Op ---
General Patient Condition Mental Status/LOC: Same as Preop Cardiovascular: Satisfactory Nausea/Vomiting: Absent Respiratory: Satisfactory Pain: Controlled Complications: Absent Post Op Complications Complications None Follow Up Care/Instructions Patient Instructions None needed. Anesthesia/Patient Condition Patient Condition Patient is doing well, no complaints, stable vital signs, no apparent adverse anesthesia problems. No complications reported per nursing. GARRY SMITH CRNA Jun 17, 2020 10:47
--- NOTE | 2020-06-17 15:24 | OPERATIVE REPORT ---
DATE OF SERVICE: 06/17/2020 PREOPERATIVE DIAGNOSIS: Right distal ureteral stone. POSTOPERATIVE DIAGNOSIS: Right distal ureteral stone. OPERATION PERFORMED: Cystoscopy and extraction of right ureteral stone. SURGEON: Kahlil Arreola MD. ANESTHESIA: General. COMPLICATIONS: None. DESCRIPTION OF PROCEDURE: Under satisfactory general anesthesia, the patient in lithotomy position, genitalia were prepped and draped in the usual sterile fashion. Cystoscope was introduced under vision. Anterior urethra was normal. The prostate was somewhat enlarged with bladder neck obstruction, some trabeculation. Ureteric orifices were normal except that the right one was edematous and intramural portion was edematous and I could see the stone protruding through the orifice. I was able to grasp it with a grasping forceps and extracted it completely. I went back into the bladder to confirm no more fragments or stones, emptied the bladder and removed the cystoscope. The patient tolerated the procedure and anesthesia well and was sent to recovery room in stable condition. Job ID: [id number] DocumentID: [id number] Dictated Date: 06/17/2020 10:10:[address] Officer Date: 06/17/2020 15:24:40 Dictated By: KAHLIL ARREOLA MD
== END ==
LOC: SDC 08:05
PROVIDERS: ATTEND Urology
DX: N20.1 Calculus of ureter (principal); I10 Essential (primary) hypertension; I25.10 Atherosclerotic heart disease of native coronary artery without angina pectoris; M10.9 Gout, unspecified; M06.9 Rheumatoid arthritis, unspecified; Z79.899 Other long term (current) drug therapy; Z20.828 Contact with and (suspected) exposure to other viral communicable diseases
CPT/HCPCS: 52352; 74018; 87081; U0002; 87635

== ENCOUNTER 2020-08-06 11:50 | Emergency (ER) | payer OTHER, BC ==
[~2020-08-06] VITALS: Ht 172 cm; Wt 85.0 kg
[~2020-08-06 11:50] MED LIST changes: -LACTATED RINGERS 1,000 ML IV PRN; -LIDOCAINE PF 2% 5 ML (XYLOCAINE) VIAL ONE; -MEPERIDINE (DEMEROL) INJ 50 MG/ML IVP ONE; -MIDAZOLAM 2 MG/2 ML (VERSED) VIAL ONE; -ONDANSETRON 4 MG/2 ML (SDV) Z0FRAN IVP PRN; -ONDANSETRON 4 MG/2 ML (SDV) Z0FRAN ONE; -ROCURONIUM 10 MG/ML 5 ML SYRINGE IV ONE; -SEVOFLURANE (ULTANE) 15 ML INHAL SOLN ONE; -WATER (STERILE) FOR INJECTION 10 ML ONE; -cefTRIAXone 1,000 MG IV (ROCEPHIN) VIAL ONE; -cefTRIAXone FOR IV USE 1,000 MG in WATER (STERILE) FOR INJECTION 10 ML IV ONE; -fentaNYL INJECTION 100 MCG/2 ML AMP IVP ONE; -fentaNYL INJECTION 100 MCG/2 ML AMP ONE; -morphine INJ 10 MG/ML 1ML (SYR OR VIAL) IVP ONE; -proPOfol 200 MG/20 ML (DIPRIVAN) VIAL IV ONE
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
[2020-08-06] MEDS ORDERED: fentaNYL INJECTION 100 MCG/2 ML AMP IVP STA (12:17)
[2020-08-06] MEDS ORDERED: ORPHENADRINE 60 MG/2 ML (NORFLEX) AMP (ED ONLY) IVP STA (12:17)
[2020-08-06] MEDS ORDERED: KETOROLAC 30 MG/ML VIAL IVP STA (12:17)
[2020-08-06 12:35] LABS: BASOPHILS % (AUTO) 0 % (0-10); EOSINOPHILS # (AUTO) 0.1 10^3/uL (0.0-0.3); EOSINOPHILS % (AUTO) 2 % (0-10); HEMATOCRIT 41 % (40-54); HEMOGLOBIN 14.1 G/DL (13.3-17.7); LYMPHOCYTES # (AUTO) 1.9 X 10^3 (1.0-4.0); LYMPHOCYTES % (AUTO) 27 % (12-44); MEAN CORPUSCULAR HEMOGLOBIN 31 PG (25-34); MEAN CORPUSCULAR HGB CONC 35 G/DL (32-36); MEAN CORPUSCULAR VOLUME 89 FL (80-99); MEAN PLATELET VOLUME 9.5 FL (7.4-10.4); MONOCYTES # (AUTO) 0.5 X 10^3 (0.0-1.0); MONOCYTES % (AUTO) 8 % (0-12); NEUTROPHILS # (AUTO) 4.3 X 10^3 (1.8-7.8); NEUTROPHILS % (AUTO) 63 % (42-75); PLATELET COUNT 185 10^3/uL (130-400); WHITE BLOOD COUNT 6.9 10^3/uL (4.3-11.0)
[2020-08-06 12:45] LABS: INR 0.9 (0.8-1.4); PROTHROMBIN TIME PATIENT 12.9 SEC (12.2-14.7)
[2020-08-06 12:49] LABS: CHLORIDE 106 MMOL/L (98-107); SODIUM 140 MMOL/L (135-145)
[2020-08-06 12:50] LABS: ALANINE AMINOTRANSFERASE 33 U/L (0-55); ALBUMIN 4.2 GM/DL (3.2-4.5); ALKALINE PHOSPHATASE 77 U/L (40-136); BILIRUBIN,TOTAL 0.7 MG/DL (0.1-1.0); BUN/CREATININE RATIO 30; CALCIUM 9.6 MG/DL (8.5-10.1); CARBON DIOXIDE 24 MMOL/L (21-32); CREATININE SERUM 0.73 MG/DL (0.60-1.30); GFR ESTIMATED > 60; GLUCOSE 109 MG/DL (70-105); TOTAL PROTEIN 6.5 GM/DL (6.4-8.2)
[2020-08-06] MEDS ORDERED: IOHEXOL 350 MG/ML 100 ML (OMNIPAQUE 350) VIAL IV ONE (13:15)
[2020-08-06] MEDS ORDERED: CATHETER FLUSH 10 ML SYR IV PRN (13:15)
[2020-08-06] MEDS ORDERED: NS 100 ML (IVPB) BAG IV ONE (13:15)
[2020-08-06] MEDS ORDERED: HOLD METFORMIN - RECEIVED CONTRAST 20 ML VIAL IV SCH (13:15)
[2020-08-06 13:33] LABS: CLARITY,URINE CLEAR; COLOR,URINE YELLOW
[2020-08-06 13:34] LABS: BACTERIA,URINE NEGATIVE /HPF; BILIRUBIN,URINE NEGATIVE (NEGATIVE); GLUCOSE, URINE (UA) NEGATIVE (NEGATIVE); KETONES,URINE NEGATIVE (NEGATIVE); LEUKOCYTE ESTERASE ,URINE NEGATIVE (NEGATIVE); NITRITE,URINE NEGATIVE (NEGATIVE); PROTEIN,URINE NEGATIVE (NEGATIVE); RBC,URINE 0-2 /HPF; SQUAMOUS EPITHELIAL CELL,UR 0-2 /HPF
--- NOTE | 2020-08-06 14:05 | Diagnostic Imaging Report ---
EXAMINATION: CT Chest, Abdomen and Pelvis with intravenous contrast. TECHNIQUE: Multiple contiguous axial images were obtained through the chest, abdomen and pelvis after the uneventful administration of intravenous contrast. All CT scans use one or more of the following dose optimizing techniques: automated exposure control, MA and/or KvP adjustment based on a patient size and exam type, or iterative reconstruction. HISTORY: Trauma. COMPARISON: 06/15/2020. FINDINGS: There is no edema or pneumonia. No pleural effusion. No pneumothorax. No suspicious nodules. There is no axillary or supraclavicular lymphadenopathy. There is no mediastinal lymphadenopathy. Heart size is normal. There are moderate coronary artery calcifications. No pericardial effusion. Aorta is normal in caliber. The liver is normal without focal lesion. There is no biliary ductal dilation. Gallbladder is surgically absent. Pancreas is normal. Spleen is normal. Adrenal glands are normal. Few small cysts and too small to characterize lesions are present in the kidneys. There are several bilateral nonobstructing stones measuring 2-3 mm. There is no hydronephrosis. Urinary bladder is normal. Visualized bowel is normal in caliber without obstruction or inflammation. No free fluid or air. No abdominal or pelvic lymphadenopathy. Aorta is normal in caliber without aneurysm. There are no suspicious osseous lesions. 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 IMPRESSION: 1. No acute traumatic injury seen in the chest, abdomen or pelvis. Dictated by: Dictated on workstation # [id number]
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
[2020-08-06 14:11] VITALS: BP 121/66
[2020-08-06] MEDS ORDERED: OXYC-471 PO (14:24)
[2020-08-06] MEDS ORDERED: IBUP-1780 PO (14:24)
[2020-08-06] MEDS ORDERED: BACL10TA PO (14:24)
== END 2020-08-06 14:30 | disposition home or self-care (01) ==
LOC: ER FS 11:51
DX: S16.1XXA Strain of muscle, fascia and tendon at neck level, initial encounter (principal); S29.012A Strain of muscle and tendon of back wall of thorax, initial encounter; S39.012A Strain of muscle, fascia and tendon of lower back, initial encounter; S30.1XXA Contusion of abdominal wall, initial encounter; S20.212A Contusion of left front wall of thorax, initial encounter; S49.92XA Unspecified injury of left shoulder and upper arm, initial encounter; S49.91XA Unspecified injury of right shoulder and upper arm, initial encounter; I25.2 Old myocardial infarction; I10 Essential (primary) hypertension; Z95.5 Presence of coronary angioplasty implant and graft; V89.2XXA Person injured in unspecified motor-vehicle accident, traffic, initial encounter
CPT/HCPCS: 36415; 70450; 71260; 72125; 74177; 80053; 81000; 85025; 85610; 85730

== ENCOUNTER → 2020-08-26 | Outpatient (CLI) | payer OTHER, BC ==
[~2020-08-26] MED LIST changes: +BACL10TA PO; +IBUP-1780 PO; -LISI10TA2; -LISI10TA2 PO; +LISI10TA25; +LISI10TA25 PO; +OXYC1TAB11 PO
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
== END ==
LOC: RAD FS 13:01
PROVIDERS: ATTEND Nurse Practitioner
DX: M25.512 Pain in left shoulder (principal); M25.511 Pain in right shoulder

== ENCOUNTER → 2022-12-23 | Outpatient (CLI) | payer MEDICARE, OTHER ==
[~2022-12-23] MED LIST changes: -SULF1TAB35 PO; +SULF1TAB38 PO
--- NOTE | 2022-12-23 10:37 | Diagnostic Imaging Report ---
PROCEDURE: MRI lumbar spine. TECHNIQUE: Multiplanar, multisequence MRI of the lumbar spine was performed without contrast. INDICATION: Low back pain. COMPARISON: CT abdomen pelvis 08/06/2020. FINDINGS: There are 5 lumbar-type vertebral bodies for the purposes of this report. Normal alignment. Vertebral body heights preserved. Mild Modic type I degenerative endplate changes at L4-L5. No abnormal signal in the conus which terminates at L2. Normal morphology of the cauda equina. Visualized pelvis and paravertebral soft tissues demonstrate no acute findings. Postoperative findings of left hemilaminotomy at L5-S1. L1-L2: Moderate facet arthropathy. No spinal canal, lateral recess or neural foraminal narrowing. L2-L3: Annular disc bulging and facet arthropathy result in mild spinal canal and bilateral lateral recess narrowing. Moderate bilateral neural foraminal narrowing. L3-L4: Annular disc bulging, ligamentous hypertrophy and facet arthropathy all result in severe spinal canal stenosis. Moderate to severe bilateral neural foraminal narrowing. L4-L5: Advanced facet arthropathy. Severe left lateral recess narrowing appears to be due to a synovial facet cyst. Mild to moderate spinal canal stenosis. Severe bilateral neural foraminal narrowing. L5-S1: Moderate facet arthropathy. Severe right and mild left lateral recess narrowing. Severe left and mild right neural foraminal narrowing. No spinal canal narrowing. IMPRESSION: 1. Spondylotic changes result in severe spinal canal stenosis at L3-L4. 2. Severe left lateral recess narrowing at L4-L5 appears to be due to a synovial facet cyst. 3. Additional multilevel high-grade lateral recess and neural foraminal narrowing detailed above level by level. No other high-grade spinal canal stenosis. 4. No acute osseous findings. Mild Modic type I degenerative endplate changes at L4-L5. Dictated by: Dictated on workstation # [id number]
== END ==
LOC: RAD 07:30
PROVIDERS: ATTEND Family Medicine
DX: M47.26 Other spondylosis with radiculopathy, lumbar region (principal); M48.061 Spinal stenosis, lumbar region without neurogenic claudication; M51.16 Intervertebral disc disorders with radiculopathy, lumbar region
CPT/HCPCS: 72148

== ENCOUNTER 2023-05-04 18:49 | Emergency (ER) | payer MEDICARE, OTHER ==
[~2023-05-04] VITALS: Ht 172.7 cm; Wt 95.3 kg
[2023-05-04] MEDS ORDERED: ONDANSETRON INJECTION 4 MG/2 ML (SDV) IVP STA (19:11)
[2023-05-04] MEDS ORDERED: KETOROLAC INJ 15 MG/ML VIAL IVP STA (19:11)
[2023-05-04] MEDS ORDERED: NS IV 1000 ML 1,000 ML IV STA (19:11)
--- NOTE | 2023-05-04 19:18 | ED General ---
General Stated Complaint: LOWER BACK PAIN,NAUSEA,FEVER Source of Information: Patient History of Present Illness Date Seen by Provider: May 04, 2023 Time Seen by Provider: 19:00 Initial Comments 67-year-old male presenting with complaints of right flank pain with nausea, vomiting, fever. He states that his difficult for him to urinate. He feels like he is only going small amounts. He thought initially he might be constipated but when he started having the severe right flank pain he felt like it might be more of a kidney stone. He has had kidney stones in the past and they always tend to hurt in the same area on his right flank. He has not taken anything for pain today. He finally came in this evening because the pain was getting so bad. He states the pain comes in waves at times. He also has had previous spinal surgery but does not feel any pain in his spine just in the r ight flank. Timing/Duration: 12 Hours Severity: Severe Modifying Factors: worse with Movement Associated Systoms: No Chest Pain, No Cough, No Diaphoresis, No Fever/Chills, No Headaches; Loss of Appetite; No Malaise; Nausea/Vomiting; No Rash, No Seizure, No Shortness of Air, No Syncope Allergies and Home Medications Allergies Coded Allergies: No Known Drug Allergies (Unverified , 06/16/20) Patient Home Medication List Home Medication List Reviewed: Yes Alprazolam (Alprazolam) 0.5 Mg Tablet, 0.5 MG PO HS, (Reported) Entered as Reported by: BYRON MARTIN on 06/16/20 1605 Atorvastatin Calcium (Atorvastatin Calcium) 80 Mg Tablet, 80 MG PO DAILY, ( Reported) Entered as Reported by: BYRON MARTIN on 06/16/20 1605 Baclofen (Baclofen) 10 Mg Tablet, 10 MG PO BID PRN for MUSCLE SPASMS Prescribed by: JUAN DANIEL QUINTANILLA on 08/06/20 142 Carvedilol (Carvedilol) 6.25 Mg Tablet, 6.25 MG PO BID, (Reported) Entered as Reported by: BYRON MARTIN on 06/16/20 1605 Ciprofloxacin HCl (Ciprofloxacin HCl) 500 Mg Tablet, 500 MG PO BID Prescribed by: JUAN DANIEL QUINTANILLA on 05/04/23 097 Ibuprofen (Ibuprofen) 800 Mg Tablet, 800 MG PO Q8H PRN for PAIN Prescribed by: JUAN DANIEL QUINTANILLA on 08/06/20 1424 Lisinopril (Lisinopril) 10 Mg Tablet, 10 MG PO DAILY, (Reported) Entered as Reported by: BYRON MARTIN on 06/16/20 1605 Ondansetron (Ondansetron Odt) 4 Mg Tab.rapdis, 4 MG PO Q6H PRN for NAUSEA/VOMITING Prescribed by: JUAN DANIEL QUINTANILLA on 05/04/232058 Oxycodone HCl/Acetaminophen (Oxycodone-Acetaminophen 5-325) 1 Each Tablet, 1 EACH PO Q4H PRN for PAIN-SEVERE (8-10) Prescribed by: JUAN DANIEL QUINTANILLA on 08/06/20 142 Phenazopyridine HCl (Pyridium) 200 Mg Tablet, 1 TAB PO TID PRN for SPASMS Prescribed by: ARY JOHANSEN on 06/17/20 1044 Sulfamethoxazole/Trimethoprim (Bactrim Ds Tablet) 1 Each Tablet, 1 EACH PO BID Prescribed by: ARY JOHANSEN on 06/17/20 1044 Tamsulosin HCl (Flomax) 0.4 Mg Cap, 0.4 MG PO DAILY, (Reported) Entered as Reported by: BYRON MARTIN on 06/16/20 160 Tamsulosin HCl (Flomax) 0.4 Mg Cap, 0.4 MG PO DAILY Prescribed by: JUAN DANIEL QUINTANILLA on 05/04/232058 Review of Systems Review of Systems Constitutional: chills, fever EENTM: no symptoms reported Respiratory: no symptoms reported Cardiovascular: no symptoms reported Gastrointestinal: see HPI Genitourinary: see HPI Musculoskeletal: no symptoms reported Skin: no symptoms reported Psychiatric/Neurological: No Symptoms Reported Past Ekwgpqz-Ndvvfx-Jrnbqj Hx Seasonal Allergies Seasonal Allergies: No Past Medical History Surgeries: Yes (Kidney stone retrieval, KNEE X3 SCOPES, BACK X3, STENTS, ROTATOR CUFF X2) Appendectomy, Gallbladder, Orthopedic Respiratory: No Cardiac: Yes (STENTS 2016) Coronary Artery Disease, Heart Attack, Hypertension Neurological: No Reproductive Disorders: No Sexually Transmitted Disease: No Genitourinary: Yes Kidney Stones Gastrointestinal: No Musculoskeletal: Yes (2 rotator cuff sx,left knee arthoscopy,back sx) Arthritis, Gout Endocrine: No HEENT: Yes (GLASSES) Loss of Vision: Denies Hearing Impairment: Denies Cancer: No Psychosocial: No Integumentary: No Blood Disorders: No Adverse Reaction/Blood Tranf: No (N/A) Physical Exam Vital Signs Vital Signs - First Documented 05/04/23 19:04 Temp 37.4 Pulse 70 Resp 16 B/P (MAP) 148/85 (106) Pulse Ox 96 O2 Delivery Room Air Capillary Refill : Height, Weight, BMI Height: '" Weight: lbs. oz. [id number]; 28.00 BMI Method: General Appearance: No Apparent Distress, WD/WN Respiratory: Chest Non Tender, Lungs Clear, Normal Breath Sounds Cardiovascular: Regular Rate, Rhythm, Normal Peripheral Pulses Gastrointestinal: Normal Bowel Sounds, No Pulsatile Mass, Soft; No Distended, No Guarding; Tenderness (right lateral flank) Rectal: Deferred Back: No CVA Tenderness Extremity: Normal Capillary Refill, Normal Inspection, No Pedal Edema Neurologic/Psychiatric: Alert, Oriented x3 Skin: Normal Color, Warm/Dry Focused Exam Lactate Level 05/04/23 19:10: Lactic Acid Level 1.12 Lactic Acid Level Laboratory Tests Test 05/04/23 19:10 Lactic Acid Level 1.12 MMOL/L (0.50-2.00) Progress/Results/Core Measures Suspected Sepsis SIRS Temperature: Pulse: Respiratory Rate: Laboratory Tests 05/04/23 19:10: White Blood Count 10.0 Blood Pressure / Mean: 05/04/23 19:10: Lactic Acid Level 1.12 Laboratory Tests 05/04/23 19:10: Creatinine 0.90, Platelet Count 204, Total Bilirubin 0.7 Results/Orders Lab Results Laboratory Tests Test 05/04/23 19:10 05/04/23 20:23 Range/Units White Blood Count 10.0 4.3-11.0 10^3/uL Red Blood Count 4.29 L 4.30-5.52 10^6/uL Hemoglobin 12.9 L 13.3-17.7 g/dL Hematocrit 38 L 40-54 % Mean Corpuscular Volume 89 80-99 fL Mean Corpuscular Hemoglobin 30 25-34 pg Mean Corpuscular Hemoglobin Concent 34 32-36 g/dL Red Cell Distribution Width 13.4 10.0-14.5 % Platelet Count 204 130-400 10^3/uL Mean Platelet Volume 8.9 L 9.0-12.2 fL Immature Granulocyte % (Auto) 1 % Neutrophils (%) (Auto) 69 42-75 % Lymphocytes (%) (Auto) 23 12-44 % Monocytes (%) (Auto) 6 0-12 % Eosinophils (%) (Auto) 1 0-10 % Basophils (%) (Auto) 0 0-10 % Neutrophils # (Auto) 6.9 1.8-7.8 10^3/uL Lymphocytes # (Auto) 2.3 1.0-4.0 10^3/uL Monocytes # (Auto) 0.6 0.0-1.0 10^3/uL Eosinophils # (Auto) 0.1 0.0-0.3 10^3/uL Basophils # (Auto) 0.0 0.0-0.1 10^3/uL Immature Granulocyte # (Auto) 0.1 0.0-0.1 10^3/uL Sodium Level 135 135-145 MMOL/L Potassium Level 4.0 3.6-5.0 MMOL/L Chloride Level 101 98-107 MMOL/L Carbon Dioxide Level 22 21-32 MMOL/L Anion Gap 12 5-14 MMOL/L Blood Urea Nitrogen 25 H 7-18 MG/DL Creatinine 0.90 0.60-1.30 MG/DL Estimat Glomerular Filtration Rate 93 BUN/Creatinine Ratio 28 Glucose Level 129 H 70-105 MG/DL Lactic Acid Level 1.12 0.50-2.00 MMOL/L Calcium Level 10.3 H 8.5-10.1 MG/DL Corrected Calcium 10.1 8.5-10.1 MG/DL Total Bilirubin 0.7 0.1-1.0 MG/DL Aspartate Amino Transf (AST/SGOT) 26 5-34 U/L Alanine Aminotransferase (ALT/SGPT) 26 0-55 U/L Alkaline Phosphatase 113 40-136 U/L C-Reactive Protein < 0.30 <0.50 MG/DL Total Protein 7.1 6.4-8.2 GM/DL Albumin 4.2 3.2-4.5 GM/DL Urine Color YELLOW Urine Clarity SL CLOUDY Urine pH 7.0 5-9 Urine Specific Vanderbilt 1.015 L 1.016-1.022 Urine Protein NEGATIVE NEGATIVE Urine Glucose (UA) NEGATIVE NEGATIVE Urine Ketones NEGATIVE NEGATIVE Urine Nitrite POSITIVE H NEGATIVE Urine Bilirubin NEGATIVE NEGATIVE Urine Urobilinogen 1.0 < = 1.0 MG/DL Urine Leukocyte Esterase 2+ H NEGATIVE Urine RBC (Auto) 1+ H NEGATIVE Urine RBC 10-25 H /HPF Urine WBC 50-100 H /HPF Urine Squamous Epithelial Cells NONE /HPF Urine Crystals NONE /LPF Urine Bacteria MODERATE H /HPF Urine Casts NONE /LPF Urine Mucus SMALL H /LPF Urine Culture Indicated YES My Orders Orders - JUAN DANIEL QUINTANILLA MD Ua Culture If Indicated (05/04/23 19:02) Cbc And Automated Diff (05/04/23 19:11) Comprehensive Metabolic Panel (05/04/23 19:11) Blood Culture (05/04/23 19:11) Ed Iv/Invasive Line Start (05/04/23 19:11) Crp Fs (05/04/23 19:11) Lactic Acid Analyzer (05/04/23 19:11) Ct Abdomen/Pelvis Wo (05/04/23 19:11) Ns Iv 1000 Ml (Ns Iv 1000 Ml) (05/04/23 19:11) Ondansetron Injection (Ondansetron Inj (05/04/23 19:11) Ketorolac Injection (Ketorolac Injection (05/04/23 19:11) Tamsulosin Capsule (Flomax Capsule) (05/04/23 20:34) Rx-Ondansetron Po (Rx-Zofran Po) (05/04/23 20:34) Urine Culture (05/04/23 20:23) Ciprofloxacin Tablet (Ciprofloxacin Tabl (05/04/23 20:55) Vital Signs/I&O 05/04/23 19:04 Temp 37.4 Pulse 70 Resp 16 B/P (MAP) 148/85 (106) Pulse Ox 96 O2 Delivery Room Air Capillary Refill : Progress Note #1: Progress Note Differential diagnosis includes kidney stone, renal colic, pyelonephritis, diverticulitis, colitis, appendicitis, cystitis. Obtain urinalysis to check for signs of infection or blood. Establish peripheral IV access and send labs for complete blood count, comprehensive metabolic profile, blood cultures, lactic acid, CRP. CT scan of the abdomen and pelvis without IV contrast to look for possible kidney stone or pathology to cause his right flank pain. Administer normal saline 1 L IV fluid bolus for hydration, Toradol 15 mg IV for pain, Zofran 4 mg IV for nausea and vomiting. Progress Note #2: Progress Note Patient's complete blood count was normal with a white blood cell count of 10. His comprehensive metabolic profile did not show any acute electrolyte abnormalities. His creatinine was 0.9. He had a normal lactic acid of 1.12. His urinalysis did show signs of UTI with nitrites and white blood cells with bacteria. The CT scan of the abdomen and pelvis without IV contrast showed a 5 mm mid ureter stone on the right side. This was causing some mild to medium obstruction and hydroureter hydronephrosis. Administer Flomax 0.4 mg p.o. x1 as well as Cipro 500 mg p.o. x1. Patient stated that his pain was well controlled but the Toradol shot and the Zofran he got and had taking care of his nausea. Counseled on follow-up and return precautions. Advised to continue to strain his urine and take the antibiotics. Given numbers for Dr. Mata with urology as well as Dr. Goldman. Diagnostic Imaging Diagonstic Imaging: CT Plain Films/CT/US/NM/MRI: abdomen, pelvis Comments [facility], [place] NAME: JUAN CARLOS [facility] REC#: [id number] PT STATUS: REG ER : 1955 PHYSICIAN: JUAN DANIEL QUINTANILLA MD ADMIT DATE: 05/04/23/ER FS Draft Date of Exam:05/04/23 CT ABDOMEN/PELVIS WO PROCEDURE: CT abdomen and pelvis without contrast. TECHNIQUE: Multiple contiguous axial images were obtained through the abdomen and pelvis without the use of intravenous contrast. Auto Exposure Controls were utilized during the CT exam to meet ALARA standards for radiation dose reduction. INDICATION: Right flank pain with fever, nausea and emesis. COMPARISON: 08/06/2020 Note is made of calcified granulomas in the lung bases bilaterally. Unenhanced images of liver and spleen also reveal calcified granulomas without other focal hepatic abnormality or splenic lesion. Gallbladder surgically absent. No pancreatic or adrenal gland abnormality is identified. There are multiple nonobstructing stones present within the left kidney measuring up to 0.4 cm in size. There are also several punctate stones in the right renal collecting system with associated mild right hydronephrosis and hydroureter to the level of an approximately 0.5 cm stone in the midportion of the right ureter. There is no free fluid. No organized fluid collection is identified. There is mural thickening of the urinary bladder which may part be due to incomplete distention. Rather extensive surgical findings are noted in the lumbar spine. IMPRESSION: Bilateral nephrolithiasis with at least partially obstructing 0.5 cm stone in the midportion right ureter resulting in right hydronephrosis and hydroureter. Dictated on workstation # [id number] Dict: 05/04/231939 Trans: 05/04/231956 CV [id number] Interpreted by: FANNY MONTEMAYOR MD Electronically signed by: Reviewed: Reviewed by Me Departure Impression Primary Impression: Calculus of right ureter Additional Impressions: Acute right flank pain Renal colic on right side Cystitis with hematuria Disposition: HOME, SELF-CARE Condition: Stable Departure-Patient Inst. Decision time for Depature: 20:57 Referrals: Jocelin GOLDMAN MD SELF,NICHO ORR (PCP/Family) Primary Care Physician Patient Instructions: Flank Pain ED, Blood in Urine (Hematuria), Adult ED, Urinary Tract Infection, Adult ED, Kidney Stone, Adult ED, How to Strain Your Urine, Kidney Stone Diet Add. Discharge Instructions: Take the antibiotics until gone to treat for urine infection. Use the pain medicine that you have at home if needed for severe pain. Try to stay well-hydrated and drink plenty of water to help flush the kidney stone out. Strain your urine to see when you might pass the stone. Follow-up with urology especially if the pain is not improving. Dr. Goldman will be seeing Urology patients in [place] starting in May. Dr. Mata is with the [facility] out [facility] and does come to [place] to see patients as well. He can be reached by calling [phone]. If you have worsening pain despite the medicine, uncontrollable nausea and vomiting, or fever over 101 F then you should be seen again as you may need to be admitted to a hospital that has Urology services such as one in [place] or [place]. Scripts Ondansetron (Ondansetron Odt) 4 Mg Tab.rapdis 4 MG PO Q6H PRN for NAUSEA/VOMITING for 3 Days, #12 TAB 0 Refills Prov: JUAN DANIEL QUINTANILLA MD 10/25/23 Ciprofloxacin HCl (Ciprofloxacin HCl) 500 Mg Tablet 500 MG PO BID for UTI for 7 Days, #14 TAB 0 Refills Prov: JUAN DANIEL QUINTANILLA MD 05/04/23 Tamsulosin HCl (Flomax) 0.4 Mg Cap 0.4 MG PO DAILY for renal colic for 5 Days, #5 CAP 0 Refills Prov: JUAN DANIEL QUINTANILLA MD 05/04/23 Work/School Note: Work Release Form Date Seen in the Emergency Department: May 04, 2023 Return to Work: May 06, 2023 Restrictions: Return-No Fever (24hrs), Return-No Vomiting(24hrs) JUAN DANIEL QUINTANILLA MD May 04, 2023 19:18
[2023-05-04 19:25] LABS: BASOPHILS % (AUTO) 0 % (0-10); EOSINOPHILS # (AUTO) 0.1 10^3/uL (0.0-0.3); EOSINOPHILS % (AUTO) 1 % (0-10); HEMATOCRIT 38 % (40-54); HEMOGLOBIN 12.9 g/dL (13.3-17.7); LYMPHOCYTES # (AUTO) 2.3 10^3/uL (1.0-4.0); LYMPHOCYTES % (AUTO) 23 % (12-44); MEAN CORPUSCULAR HEMOGLOBIN 30 pg (25-34); MEAN CORPUSCULAR HGB CONC 34 g/dL (32-36); MEAN CORPUSCULAR VOLUME 89 fL (80-99); MEAN PLATELET VOLUME 8.9 fL (9.0-12.2); MONOCYTES # (AUTO) 0.6 10^3/uL (0.0-1.0); MONOCYTES % (AUTO) 6 % (0-12); NEUTROPHILS # (AUTO) 6.9 10^3/uL (1.8-7.8); NEUTROPHILS % (AUTO) 69 % (42-75); PLATELET COUNT 204 10^3/uL (130-400)
[2023-05-04 19:42] LABS: BILIRUBIN,TOTAL 0.7 MG/DL (0.1-1.0); CALCIUM 10.3 MG/DL (8.5-10.1); CARBON DIOXIDE 22 MMOL/L (21-32); CHLORIDE 101 MMOL/L (98-107); SODIUM 135 MMOL/L (135-145); TOTAL PROTEIN 7.1 GM/DL (6.4-8.2)
[2023-05-04 19:54] LABS: ALANINE AMINOTRANSFERASE 26 U/L (0-55); ALBUMIN 4.2 GM/DL (3.2-4.5); ALKALINE PHOSPHATASE 113 U/L (40-136); BUN/CREATININE RATIO 28; GFR ESTIMATED 93; GLUCOSE 129 MG/DL (70-105)
--- NOTE | 2023-05-04 19:58 | Diagnostic Imaging Report ---
PROCEDURE: CT abdomen and pelvis without contrast. TECHNIQUE: Multiple contiguous axial images were obtained through the abdomen and pelvis without the use of intravenous contrast. Auto Exposure Controls were utilized during the CT exam to meet ALARA standards for radiation dose reduction. INDICATION: Right flank pain with fever, nausea and emesis. COMPARISON: 08/06/2020 Note is made of calcified granulomas in the lung bases bilaterally. Unenhanced images of liver and spleen also reveal calcified granulomas without other focal hepatic abnormality or splenic lesion. Gallbladder surgically absent. No pancreatic or adrenal gland abnormality is identified. There are multiple nonobstructing stones present within the left kidney measuring up to 0.4 cm in size. There are also several punctate stones in the right renal collecting system with associated mild right hydronephrosis and hydroureter to the level of an approximately 0.5 cm stone in the midportion of the right ureter. There is no free fluid. No organized fluid collection is identified. There is mural thickening of the urinary bladder which may part be due to incomplete distention. Rather extensive surgical findings are noted in the lumbar spine. IMPRESSION: Bilateral nephrolithiasis with at least partially obstructing 0.5 cm stone in the midportion right ureter resulting in right hydronephrosis and hydroureter. Dictated by: Dictated on workstation # [id number]
[2023-05-04] MEDS ORDERED: TAMSULOSIN 0.4 MG (FLOMAX) CAP PO STA (20:34)
[2023-05-04] MEDS ORDERED: RX-ONDANSETRON 4 MG ODT (ZOFRAN) PPK #4 PO STA (20:34)
[2023-05-04 20:40] LABS: BILIRUBIN,URINE NEGATIVE (NEGATIVE); CLARITY,URINE SL CLOUDY; COLOR,URINE YELLOW; GLUCOSE, URINE (UA) NEGATIVE (NEGATIVE); KETONES,URINE NEGATIVE (NEGATIVE); LEUKOCYTE ESTERASE ,URINE 2+ (NEGATIVE); NITRITE,URINE POSITIVE (NEGATIVE); PROTEIN,URINE NEGATIVE (NEGATIVE)
[2023-05-04 20:41] LABS: BACTERIA,URINE MODERATE /HPF; WBC,URINE 50-100 /HPF
[2023-05-04] MEDS ORDERED: CIPROFLOXACIN 500 MG TABLET PO STA (20:55)
[2023-05-04] MEDS ORDERED: ONDA4TAB11 PO (20:59)
[2023-05-04] MEDS ORDERED: CIPR500T5 PO (20:59)
[2023-05-04] MEDS ORDERED: TMSL.4C PO (20:59)
[2023-05-04 21:15] VITALS: BP 136/74
[2023-05-09] MEDS ORDERED: CIPR500T5 PO (02:33)
== END 2023-05-04 21:15 | disposition home or self-care (01) ==
LOC: EDUNIT# 18:49 → ER FS 18:51
DX: N13.2 Hydronephrosis with renal and ureteral calculous obstruction (principal); N30.91 Cystitis, unspecified with hematuria; Z90.49 Acquired absence of other specified parts of digestive tract
CPT/HCPCS: 36415; 74176; 80053; 81000; 83605; 85025; 86141; 87040; 87077; 87088; 87186